=== PATIENT | female | born 1985 | race African-American/Black ===

== ENCOUNTER 2017-01-23 06:38 | Emergency (ER) | payer MEDICAID ==
[~2017-01-23] VITALS: Ht 165.1 cm; Wt 101.0 kg
[2017-01-23 07:42] VITALS: BP 119/72
[2017-01-23] MEDS ORDERED: PENICILLIN G BENZATHINE 1,200,000 UNITS/2ML SYR IM NR (08:45)
== END 2017-01-23 09:17 | disposition home or self-care (01) ==
LOC: ER 06:38
DX: H10.9 Unspecified conjunctivitis (principal); J02.9 Acute pharyngitis, unspecified
CPT/HCPCS: 87070; 87430; 96372; 99284; J0561; Z7610

== ENCOUNTER 2019-01-11 21:20 | Emergency (ER) | payer MEDICAID ==
[~2019-01-11] VITALS: Ht 165.1 cm; Wt 96.0 kg
[2019-01-11 22:57] LABS: CLARITY URINE CLEAR (CLEAR); COLOR URINE YELLOW (YELLOW); KETONES URINE NEGATIVE (NEGATIVE); LEUKOCYTE ESTERASE URINE 1+ (NEGATIVE); NITRITE URINE NEGATIVE (NEGATIVE); OCCULT BLOOD URINE TRACE (NEGATIVE); PH URINE 6.5 (4.5-8.0); PROTEIN URINE NEGATIVE (NEGATIVE); SPECIFIC GRAVITY URINE 1.011 (1.005-1.030); UROBILINOGEN URINE 0.2 E.U./dL (0.2-1.0)
[2019-01-12] MEDS ORDERED: IBUPROFEN 600MG TABLET PO STA (01:37)
[2019-01-12 02:22] LABS: CHLORIDE 108 mEq/L (98-107)
[2019-01-12 02:35] LABS: BASOPHILS % 0.9 % (0.0-2.0); EOSINOPHILS % 5.3 % (0.0-5.0); HEMATOCRIT. 36.1 % (36.0-48.0); HEMOGLOBIN. 12.5 g/dL (12.0-16.0); LYMPHOCYTES % 30.9 % (20.0-50.0); MEAN CORPUSCULAR HEMOGLOBIN 31.3 pg (28.0-32.0); MEAN CORPUSCULAR VOLUME 90.7 fL (81.0-99.0); MEAN PLATELET VOLUME 7.3 fl (7.4-10.4); MONOCYTES % 5.5 % (2.0-8.0); NEUTROPHILS % 57.4 % (40.0-76.0); PLATELET 370 x1000/uL (130-400); RED BLOOD CELL COUNT 3.98 mill/uL (4.2-5.4); RED CELL DISTRIBUTION WIDTH 12.3 % (11.6-14.6)
[2019-01-12 03:51] LABS: HCG SCREEN NEGATIVE
[2019-01-12 04:26] VITALS: BP 125/64
== END 2019-01-12 04:18 | disposition home or self-care (01) ==
LOC: ER 21:20
DX: N39.0 Urinary tract infection, site not specified (principal)
CPT/HCPCS: 36415; 81003; 81025; 84703; 99283

== ENCOUNTER 2020-11-28 07:51 | Emergency (ER) | payer MEDICAID ==
[~2020-11-28] VITALS: Ht 165.1 cm; Wt 72.0 kg
[2020-11-28 08:12] VITALS: BP 108/71
[2020-11-28] MEDS ORDERED: IBUPROFEN 600MG TABLET PO ONE (08:30)
[2020-11-28] MEDS ORDERED: IBUP-2029 MT (08:52)
[2020-11-28] MEDS ORDERED: AMOX-424 MT (08:52)
[2020-11-28] MEDS ORDERED: METR500T MT (08:52)
== END 2020-11-28 09:00 | disposition home or self-care (01) ==
LOC: ER 07:51
DX: S30.810A Abrasion of lower back and pelvis, initial encounter (principal); M79.18 Myalgia, other site; W26.8XXA Contact with other sharp object(s), not elsewhere classified, initial encounter; R03.0 Elevated blood-pressure reading, without diagnosis of hypertension; Y93.E8 Activity, other personal hygiene; Y92.031 Bathroom in apartment as the place of occurrence of the external cause
CPT/HCPCS: 81025; 99282; 99283

== ENCOUNTER 2021-01-11 10:46 | Emergency (ER) | payer MEDICAID ==
[~2021-01-11] VITALS: Ht 165.1 cm; Wt 86.0 kg
[~2021-01-11 10:46] MED LIST: AMOX-424 MT; IBUP-2029 MT; METR500T MT
[2021-01-11 12:45] LABS: CLARITY URINE CLEAR (CLEAR); COLOR URINE YELLOW (YELLOW); KETONES URINE NEGATIVE (NEGATIVE); LEUKOCYTE ESTERASE URINE 1+ (NEGATIVE); NITRITE URINE NEGATIVE (NEGATIVE); OCCULT BLOOD URINE NEGATIVE (NEGATIVE); PH URINE 7.5 (4.5-8.0); PROTEIN URINE NEGATIVE (NEGATIVE); SPECIFIC GRAVITY URINE 1.009 (1.005-1.030); UROBILINOGEN URINE 0.2 E.U./dL (0.2-1.0)
[2021-01-11 14:00] VITALS: BP 110/67
[2021-01-11] MEDS ORDERED: CEFTRIAXONE SODIUM 500 MG/VIAL IM STA (14:34)
[2021-01-11] MEDS ORDERED: DOXY100C2 PO (14:45)
[2021-01-11] MEDS ORDERED: LIDOCAINE HCL 1% 20ML VIAL (Pyxis) INJ INFIL ONE (14:45)
[2021-01-11] MEDS ORDERED: CLOT21CR4 VG (14:45)
[2021-01-15 09:11] LABS: NEISSERIA GONORRHOEAE NAA Negative (Negative)
== END 2021-01-11 15:09 | disposition home or self-care (01) ==
LOC: ER 10:46
DX: N72 Inflammatory disease of cervix uteri (principal); L30.4 Erythema intertrigo
CPT/HCPCS: 81003; 81025; 87210; 87491; 87591; 99283

== ENCOUNTER 2021-12-18 05:49 | Emergency (ER) | payer MEDICAID ==
[~2021-12-18] VITALS: Ht 165.1 cm; Wt 91.0 kg
[~2021-12-18 05:49] MED LIST changes: +CLOT21CR4 VG; +DOXY100C5 PO
[2021-12-18 06:22] VITALS: BP 124/72
[2021-12-18] MEDS ORDERED: CEFTRIAXONE SODIUM 1 G/VIAL IM ONE (08:45)
[2021-12-18] MEDS ORDERED: DOXYCYCLINE HYCLATE 100MG CAPSULE PO ONE (08:45)
[2021-12-18 08:52] LABS: CLARITY URINE CLEAR (CLEAR); COLOR URINE YELLOW (YELLOW); KETONES URINE NEGATIVE (NEGATIVE); LEUKOCYTE ESTERASE URINE NEGATIVE (NEGATIVE); NITRITE URINE NEGATIVE (NEGATIVE); OCCULT BLOOD URINE NEGATIVE (NEGATIVE); PROTEIN URINE NEGATIVE (NEGATIVE); UROBILINOGEN URINE 0.2 E.U./dL (0.2-1.0)
[2021-12-18] MEDS ORDERED: DOXY100T2 PO (08:57)
[2021-12-20 05:11] LABS: NEISSERIA GONORRHOEAE NAA Negative (Negative)
== END 2021-12-18 09:26 | disposition home or self-care (01) ==
LOC: ER 05:49
DX: A64 Unspecified sexually transmitted disease (principal)
CPT/HCPCS: 81003; 81025; 87210; 87491; 87591; 96372; 99283; J0696